=== PATIENT | male | born 1985 | race Caucasian/White ===

== ENCOUNTER 2017-10-31 15:06 | Emergency (ER) | payer MEDICAID, OTHER ==
[~2017-10-31] VITALS: Ht 180.3 cm; Wt 108.9 kg
[2017-10-31 15:52] VITALS: BP 152/88
[2017-10-31] MEDS ORDERED: cefTRIAXone SOD 1,000 MG VL IM ONE (16:45)
== END 2017-10-31 17:15 | disposition home or self-care (01) ==
LOC: ER 15:09
DX: J02.0 Streptococcal pharyngitis (principal); L01.00 Impetigo, unspecified; F17.210 Nicotine dependence, cigarettes, uncomplicated
CPT/HCPCS: 87205; 87880; 96372; 99284; J0696